=== PATIENT | female | born 1965 | race Caucasian/White ===

== ENCOUNTER 2021-08-28 18:41 | Emergency (ER) | payer MEDICARE, OTHER ==
[2021-08-28] MEDS ORDERED: SODIUM CHLORIDE 0.9% 1,000 ML IV STA (18:54)
[2021-08-28] MEDS ORDERED: PROCHLORPERAZINE INJ 10 MG/2 ML VIAL IVP STA (18:54)
[2021-08-28] MEDS ORDERED: ACETAMINOPHEN TAB 500 MG TAB PO STA (18:54)
[2021-08-28] MEDS ORDERED: diphenhydrAMINE 50 MG/ML 1 ML VIAL IVP STA (18:54)
--- NOTE | 2021-08-28 20:01 | XR ---
EXAMINATION TYPE: XR chest 1V portable DATE OF EXAM: 08/28/2021 COMPARISON: NONE HISTORY: Cough TECHNIQUE: Single view FINDINGS: There is no heart failure nor confluent pneumonic infiltrate. Costophrenic angles are clear . There is left axillary pacemaker. Bony thorax is intact IMPRESSION: No active cardiopulmonary disease.
[2021-08-28 20:04] LABS: Basophils % (A) 0 %; Eosinophils % (A) 0 %; HCT 40.3 % (34.0-46.0); HGB 13.8 gm/dL (11.4-16.0); Lymphocytes # (A) 1.3 k/uL (1.0-4.8); Lymphocytes % (A) 23 %; MCH 31.9 pg (25.0-35.0); MCHC 34.2 g/dL (31.0-37.0); MCV 93.2 fL (80.0-100.0); Monocytes # (A) 0.7 k/uL (0-1.0); Monocytes % (A) 13 %; Neutrophils # (A) 3.4 k/uL (1.3-7.7); Neutrophils % (A) 62 %; Platelet Count 212 k/uL (150-450); RBC 4.32 m/uL (3.80-5.40); RDW 13.3 % (11.5-15.5); WBC 5.6 k/uL (3.8-10.6)
--- NOTE | 2021-08-28 20:10 | ED ---
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 Tested positive for Covid yesterday. Symptoms started yesterday as well. Endorses occasional nausea. Endorses a generalized headache. Denies chest pain. Denies shortness of breath. Denies diarrhea. He presents for monoclonal antibodies and further evaluation. Denies any sick contacts. - Related Data Home Medications Medication Instructions Recorded Confirmed Acetaminophen Tab [Tylenol Tab] 1,000 mg PO Q6HR PRN 08/28/21 08/28/21 Albuterol Inhaler [Ventolin Hfa 2 puff INHALATION RT-Q6H PRN 08/28/21 08/28/21 Inhaler] Previous Rx's Medication Instructions Recorded Ondansetron Odt [Zofran Odt] 8 mg PO Q8HR PRN 3 Days #9 tab 08/28/21 dexAMETHasone [Decadron] 6 mg PO DAILY 4 Days #4 tab 08/28/21 Allergies Allergy/AdvReac Type Severity Reaction Status Date / Time levofloxacin [From Levaquin] Allergy Anaphylaxis Verified 08/28/21 19:47 NSAIDS (Non-Steroidal Allergy Anaphylaxis Verified 08/28/21 19:47 Anti-Inflamma Sulfa (Sulfonamide Allergy Anaphylaxis Verified 08/28/21 19:47 Antibiotics) Review of Systems ROS Statement: Those systems with pertinent positive or pertinent negative responses have been documented in the HPI. Review of Systems: CONST: Endorses fever EYES: Denies blurry vision ENT: Endorses nasal congestion C/V: Denies Chest pain RESP: Denies shortness of breath GI: Denies abdominal pain : Denies dysuria SKIN: Denies rash. MSK: Denies joint pain. NEURO: Endorses headache ROS Other: All systems not noted in ROS Statement are negative. Past Medical History Additional Past Medical History / Comment(s): Pacemaker, syncope, History of Any Multi-Drug Resistant Organisms: None Reported Past Surgical History: Pacemaker Past Psychological History: No Psychological Hx Reported Smoking Status: Never smoker Past Alcohol Use History: Occasional Past Drug Use History: None Reported General Exam - General Exam Comments Initial Comments: General: Appears in no acute distress. Febrile. HEAD: Normal with no signs of head trauma. EYES: PERRLA, EOMI, conjunctiva normal, no discharge. ENT: Hearing grossly intact, normal oropharynx. RESPIRATORY: Clear breath sounds bilaterally. No wheezes, rales, or rhonchi. No hypoxia. No respiratory distress. C/V: Regular rate and rhythm. S1 and S2 auscultated, no edema, peripheral pulses 2+ and intact throughout ABD: Abd is soft, nontender, nondistended EXT: Normal range of motion, no obvious deformity SKIN: No rashes or lesions observed on exposed skin. NEURO: Alert and oriented 4. Limitations: no limitations Course Vital Signs 08/28/21 08/28/21 08/28/21 18:44 18:51 19:40 Temperature 102.0 F H Pulse Rate 87 98 Respiratory 20 20 18 Rate Blood Pressure 158/92 132/77 O2 Sat by Pulse 96 97 Oximetry 08/28/21 20:35 Temperature Pulse Rate 77 Respiratory 16 Rate Blood Pressure 125/77 O2 Sat by Pulse 96 Oximetry Medical Decision Making - Medical Decision Making Abdomen the patient's presentation and physical exam, I'm concerned for COVID-19 infection. Did recommend basic laboratory studies due to poor by mouth intake as well as a chest x-ray. She was in agreement this plan. We'll repeat Covid testing as well. She'll be symptomatically treated with IV analgesia and antiemetics as well as IV fluids. Chest x-ray shows no acute cardiopulmonary process.Patient's laboratory studies are remarkable for positive Covid test. Remainder the labs are unremarkable. Chest x-ray shows no acute cardiopulmonary process. On reevaluation, vital signs are within normal limits. Patient is not hypoxic. I discussed the findings with her. She consented to monoclonal antibody therapy. Headache is nearly gone at this time. We will provide her with a dose of Decadron due to her asthma history, as well as a prescription for Decadron. She'll be discharged home after one-hour observation following monoclonal antibodies. She was in agreement this plan. We discussed quarantine. She has a pulse ox to monitor oxygenation. I will provide the patient with a prescription for Decadron, ODT Zofran.. I instructed the patient to follow up with their PCP in the next 1-3 days. I exp lained that the patient should return to the emergency department if they experience any worsening symptoms. Strict return precautions were discussed with the patient. The patient expressed understanding of these instructions. I answered all questions that the patient had. The patient was discharged home in fair condition with their prescriptions and follow up information. - Lab Data Result diagrams: 08/28/21 19:33 08/28/21 19:33 Lab Results 08/28/21 08/28/21 08/28/21 Range/Units 19:33 19:33 19:33 WBC 5.6 (3.8-10.6) k/uL RBC 4.32 (3.80-5.40) m/uL Hgb 13.8 (11.4-16.0) gm/dL Hct 40.3 (34.0-46.0) % MCV 93.2 (80.0-100.0) fL MCH 31.9 (25.0-35.0) pg MCHC 34.2 (31.0-37.0) g/dL RDW 13.3 (11.5-15.5) % Plt Count 212 (150-450) k/uL MPV 8.0 Neutrophils % 62 % Lymphocytes % 23 % Monocytes % 13 % Eosinophils % 0 % Basophils % 0 % Neutrophils # 3.4 (1.3-7.7) k/uL Lymphocytes # 1.3 (1.0-4.8) k/uL Monocytes # 0.7 (0-1.0) k/uL Eosinophils # 0.0 (0-0.7) k/uL Basophils # 0.0 (0-0.2) k/uL Sodium 134 L (137-145) mmol/L Potassium 4.1 (3.5-5.1) mmol/L Chloride 101 (98-107) mmol/L Carbon Dioxide 23 (22-30) mmol/L Anion Gap 10 mmol/L BUN 11 (7-17) mg/dL Creatinine 0.94 (0.52-1.04) mg/dL Est GFR (CKD-EPI)AfAm 80 (>60 ml/min/1.73 sqM) Est GFR (CKD-EPI)NonAf 69 (>60 ml/min/1.73 sqM) Glucose 104 H (74-99) mg/dL Calcium 8.8 (8.4-10.2) mg/dL Coronavirus (PCR) (Not Detectd) Influenza Type A RNA Not Detected (Not Detectd) Influenza Type B (PCR) Not Detected (Not Detectd) 08/28/21 Range/Units 19:33 WBC (3.8-10.6) k/uL RBC (3.80-5.40) m/uL Hgb (11.4-16.0) gm/dL Hct (34.0-46.0) % MCV (80.0-100.0) fL MCH (25.0-35.0) pg MCHC (31.0-37.0) g/dL RDW (11.5-15.5) % Plt Count (150-450) k/uL MPV Neutrophils % % Lymphocytes % % Monocytes % % Eosinophils % % Basophils % % Neutrophils # (1.3-7.7) k/uL Lymphocytes # (1.0-4.8) k/uL Monocytes # (0-1.0) k/uL Eosinophils # (0-0.7) k/uL Basophils # (0-0.2) k/uL Sodium (137-145) mmol/L Potassium (3.5-5.1) mmol/L Chloride (98-107) mmol/L Carbon Dioxide (22-30) mmol/L Anion Gap mmol/L BUN (7-17) mg/dL Creatinine (0.52-1.04) mg/dL Est GFR (CKD-EPI)AfAm (>60 ml/min/1.73 sqM) Est GFR (CKD-EPI)NonAf (>60 ml/min/1.73 sqM) Glucose (74-99) mg/dL Calcium (8.4-10.2) mg/dL Coronavirus (PCR) Detected A (Not Detectd) Influenza Type A RNA (Not Detectd) Influenza Type B (PCR) (Not Detectd) Disposition Clinical Impression: COVID-19, Febrile illness Disposition: HOME SELF-CARE Condition: Fair Instructions (If sedation given, give patient instructions): COVID-19 (Coronavirus Disease 2019) (ED) Prescriptions: dexAMETHasone [Decadron] 6 mg PO DAILY 4 Days #4 tab Ondansetron Odt [Zofran Odt] 8 mg PO Q8HR PRN 3 Days #9 tab PRN Reason: Nausea Is patient prescribed a controlled substance at d/c from ED?: No Referrals: None,Stated [Primary Care Provider] - 1-2 days Time of Disposition: 21:00
[2021-08-28 20:11] LABS: Calcium 8.8 mg/dL (8.4-10.2); Potassium 4.1 mmol/L (3.5-5.1)
[2021-08-28] MEDS ORDERED: dexAMETHasone 2 MG TAB PO STA (21:00)
[2021-08-28 21:30] VITALS: TEMP 98.9
[2021-08-28] MEDS ORDERED: BEBTELOVIMAB (EUA) 175 MG/2 ML VIAL IV ONE (21:30)
[2021-08-28 22:35] VITALS: BP 119/78; PULSE 75; RESP 18
== END 2021-08-28 22:34 | disposition home or self-care (01) ==
LOC: EC 18:41
DX: U07.1 COVID-19 (principal)
CPT/HCPCS: 36415; 80048; 85025; 87502; 87635; 71045; 99284; 96374; 96375; 96361; J1200; J0780; J8540; Q0222